=== PATIENT | female | born 1985 | race Caucasian/White ===

== ENCOUNTER 2022-09-07 12:17 | Emergency (ER) | payer OTHER, SELFPAY ==
[2022-09-07 12:20] VITALS: BP 149/101; PULSE 83; RESP 16; TEMP 36.8; O2SAT 100; BMI 31.0
--- NOTE | 2022-09-07 12:24 | ED.GENADULT ---
HPI - General Adult General Chief complaint: Skin/Abscess/Foreign Body Stated complaint: needle stick Time Seen by Provider: 09/07/22 12:45 Source: patient Mode of arrival: ambulatory Limitations: no limitations History of Present Illness HPI narrative: 37 yo otherwise healthy female presents to the ER for evaluation after she was accidentally stuck with a needle of an HIV positive patient at the [facility] just prior to arrival. She states another nurse administered an IM medication to the patient, there was bleeding afterward. She went to put the needle in the sharp box, did not cap and it and scraped the right hand of the patient accidentally. Patient had bleeding and she states there was blood on the needle that stuck her. She immediately washed out the wound and came to the ER, as [facility] was not available. complaint: needle stick of HIV+ patient Onset (ago): minute(s) Location: right and upper extremity Radiation: non-radiation Severity: mild Relieving factors: none Associated symptoms: denies other symptoms Treatments prior to arrival: none Related Data Previous Rx's Medication Instructions Recorded emtricitabine 200 mg-tenofovir 1 tab PO DAILY #7 tabs 09/07/22 disoproxil fumarate 300 mg tablet ondansetron 4 mg disintegrating 4 mg PO Q8H PRN nausea and 09/07/22 tablet vomiting #14 tabs raltegravir 400 mg tablet 400 mg PO BID #14 tabs 09/07/22 Allergies Allergy/AdvReac Type Severity Reaction Status Date / Time morphine [MORPHINE] Allergy Unknown FULL BODY Unverified 10/30/19 18:54 RASH Review of Systems Review of Systems: Yes all other systems are reviewed and are negative PMFSH Social History Social History Alcohol intake: never Smoked in Last 30 Days: Yes Use of substances other than those prescribed or required for medical reasons: No Advance Directives: No Advance Directives Information Provided: Yes Patient : No Physical Exam ED Vital Signs: Vital Signs - 24 hr 09/07/22 12:20 09/07/22 13:22 Temperature 98.2 F 98.1 F Pulse Rate 83 76 Respiratory Rate 16 16 Blood Pressure 149/101 H 125/82 Pulse Oximetry 100 100 Oxygen Delivery Method Room Air Room Air BMI result Body Mass Index 31.0 Appearance: Alert. Oriented X3. No acute distress. HEENT: normal inspection CVS: Normal heart rate and rhythm. Pulses normal. Respiratory: No respiratory distress. Skin: Skin warm and dry. Normal skin color. Normal skin turgor. No rashes. Extremities: dorsal aspect of the right hand with a 1.5cm superficial abrasion/scrape of the web space between thumb and 1st finger. 2 small puncture sites of the thumb as well. Neuro: Oriented X 3. No motor deficit. No sensory deficit. Course Course Course Narrative: This is an RME: Additional HPI, ROS, PE not included below will be deferred to primary provider. This is a 37-year-old female presenting to the emergency department for evaluation of needle stick with known HIV positive patient at [facility]. Patient reports that she was ?scraped by a dirty needle in her right hand after the needle was injected into an HIV positive patient. Patient reports that this patient's viral load is undetectable. Patient is up-to-date with tetanus Plan: Labs ordered. Will be seen by emergency room provider in the main emergency department. 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 her wounds are superficial. patient's exposure was from a HIV + patient whose viral load was negative. length discussion had with the patient and her . Dr. Vazquez also texted for recommendations - recommending PEP if patient is worried after discussing the risks and benefits the patient decided to proceed with PEP. kit provided as well as 7 day supply as patient is going on vacation starting this weekend she will f/u with [facility] for further management Differential Diagnosis Differential Diagnoses: The differential diagnosis associated with the presentation includes HIV exposure, low risk exposure, high risk exposure, HCV exposure Consult Healthcare Provider Management of the patient was discussed with: Contract Technical Writer dr. vazquez ID Lab Data MDM Lab Attestation statement: I reviewed the patient's lab results. 09/07/22 12:38 09/07/22 12:38 Labs: Lab Results 09/07/22 09/07/22 09/07/22 Range/Units 12:38 12:38 12:38 WBC 7.0 (4.8-10.8) X10*3/uL RBC 4.65 (4.20-5.50) X10*6/uL Hgb 13.5 (12.0-16.0) g/dl Hct 39.7 (37.0-47.0) % MCV 85.4 (80.0-98.0) fL MCH 29.0 (27.0-33.0) pg MCHC 34.0 (31.0-35.0) g/dl RDW 13.2 (11.0-16.0) % Plt Count 327 (160-400) X10*3/uL MPV 11.0 (9.4-12.3) fL Immature Gran % (Auto) 0.3 (0.0-0.4) % Neut % (Auto) 57.6 (45-73) % Lymph % (Auto) 34.1 (20-40) % Humphreys % (Auto) 6.5 (2-11) % Eos % (Auto) 0.9 (0-4) % Baso % (Auto) 0.6 (0-2) % Lymph # (Auto) 2.4 (1.2-4.9) X10*3/uL Humphreys # (Auto) 0.5 (0.1-1.2) X10*3/uL Eos # (Auto) 0.1 (0.0-0.4) X10*3/uL Baso # (Auto) 0.0 (0.0-0.2) X10*3/uL Abs Immat Gran (auto) 0.02 (0.00-0.03) X10*3/uL Absolute Neuts (auto) 4.1 (2.0-8.3) x10*3/uL Absolute Nucleated RBC 0.000 (0.0-0.012) X10*3/uL Nucleated RBC % (auto) 0.0 (0.0-0.2) /100WBC Sodium 138 (135-145) mmol/L Potassium 3.9 (3.3-5.1) mmol/L Chloride 107 (96-108) mmol/L Carbon Dioxide 21 L (22-29) mmol/L Anion Gap 14 (12-20) BUN 17 H (9-16) mg/dL Creatinine 0.74 (0.5-1.4) mg/dL Estim Creat Clear Calc 105.8 Estimated GFR > 60 Random Glucose 97 (60-115) mg/dL Calcium 9.9 (8.4-10.2) mg/dL Total Bilirubin 0.3 (0.0-1.0) mg/dL Direct Bilirubin 0.1 (0.0-0.5) mg/dL AST 14 (5-31) U/L ALT 11 (0-31) U/L Alkaline Phosphatase 58 (39-117) U/L Total Protein 7.7 (6.5-8.0) g/dL Albumin 4.2 (3.5-5.0) g/dL Amylase 104 H (28-100) U/L Lipase 28 (8-78) U/L Hep Bs Antigen Negative (Negative) Hep Bs Antibody REACTIVE (Nonreactive) Hep B Core Total Ab Nonreactive (Nonreactive) Hepatitis C Ab (EIA) Nonreactive (Nonreactive) HIV 1&2 Ab/P24 Ag 4thGn Nonreactive (Nonreactive) Independent Historian Clinical information obtained from an independent historian. History obtained from or confirmed by: Spouse Prescription Management I considered prescription management with: Antiviral Critical Care Time Critical Care Time Critical Care Time: No Discharge Plan Discharge Clinical Impression: HIV exposure Patient Disposition: Home, Self-Care Instructions: Needle Stick Injuries (ED), Postexposure Prophylaxis (ED) Additional Instructions: follow up with the [facility] for further management Prescriptions: New raltegravir 400 mg tablet 400 mg PO BID Qty: 14 0RF emtricitabine-tenofovir (TDF) 200-300 mg tablet 1 tab PO DAILY Qty: 7 0RF ondansetron 4 mg tablet,disintegrating 4 mg PO Q8H PRN (Reason: nausea and vomiting) Qty: 14 0RF Referrals: [facility] [Provider Group] (hiv exposure) Elisabeth Vazquez MD [Physician] - (hiv exposure) Kian Cardozo MD [Primary Care Provider] - Interventions: ED Discharge Assessment Last Done: 09/07/22 14:04 Discharge Date/Time: 09/07/22 14:10
[2022-09-07 12:57] LABS: MANUAL DIFF FLAG NO
[2022-09-07 13:22] VITALS: BP 125/82; PULSE 76; RESP 16; TEMP 36.7; O2SAT 100
[2022-09-07 13:28] LABS: Basophils Percent Auto 0.6 % (0-2); Eosinophils Absolute Auto 0.1 X10*3/uL (0.0-0.4); Eosinophils Percent Auto 0.9 % (0-4); Hematocrit 39.7 % (37.0-47.0); Hemoglobin 13.5 g/dl (12.0-16.0); Imm Gran Abs Auto 0.02 X10*3/uL (0.00-0.03); Imm Gran Pct Auto 0.3 % (0.0-0.4); Lymphocytes Absolute Auto 2.4 X10*3/uL (1.2-4.9); Lymphocytes Percent Auto 34.1 % (20-40); Mean Corpuscular Volume 85.4 fL (80.0-98.0); Monocytes Absolute Auto 0.5 X10*3/uL (0.1-1.2); Monocytes Percent Auto 6.5 % (2-11); Neutrophils Absolute Auto 4.1 x10*3/uL (2.0-8.3); Neutrophils Percent Auto 57.6 % (45-73); Platelet Count 327 X10*3/uL (160-400); Red Blood Count 4.65 X10*6/uL (4.20-5.50); Red Cell Distribution Width 13.2 % (11.0-16.0)
[2022-09-07 13:41] LABS: Alanine Aminotransferase 11 U/L (0-31); Albumin Level 4.2 g/dL (3.5-5.0); Alkaline Phosphatase 58 U/L (39-117); Amylase 104 U/L (28-100); Anion Gap 14 (12-20); Aspartate Amino Transferase 14 U/L (5-31); Bilirubin Direct 0.1 mg/dL (0.0-0.5); Blood Urea Nitrogen 17 mg/dL (9-16); Calcium 9.9 mg/dL (8.4-10.2); Carbon Dioxide 21 mmol/L (22-29); Chloride 107 mmol/L (96-108); Creatinine Clr Calc Pharmacy 105.8; Estimated Glomerular Filt Rate > 60; Glucose Random 97 mg/dL (60-115); Lipase 28 U/L (8-78); Potassium 3.9 mmol/L (3.3-5.1); Sodium 138 mmol/L (135-145); Total Protein 7.7 g/dL (6.5-8.0)
[2022-09-07 13:44] LABS: Bilirubin Total 0.3 mg/dL (0.0-1.0); HBc Num1 0.12 S/CO (0.00-0.79); HBsAGNum1 0.42 S/CO (0.00-0.99); HIV AB/AG Nonreactive (Nonreactive); HIV Num 1 0.07 S/CO (0.00-0.99); Hepatitis B Core Antibody Nonreactive (Nonreactive); Hepatitis B Surface Antigen Negative (Negative); ~HepC Num1 0.25 S/CO (0.00-0.79); ~Hepatitis B Surface Antibody REACTIVE (Nonreactive); ~Hepatitis C Antibody Nonreactive (Nonreactive)
[2022-09-07] MEDS: Post Exposure Medication Kit 1 KIT PO (13:51)
== END 2022-09-07 14:10 | disposition home or self-care (01) ==
PROVIDERS: Physician Assistant Medical; Emergency Provider Emergency Medicine Emergency Medical Services; PCP Pediatrics
DX: S61.431A Puncture wound without foreign body of right hand, initial encounter (principal); W26.9XXA Contact with unspecified sharp object(s), initial encounter; Y93.9 Activity, unspecified; Y92.9 Unspecified place or not applicable; Y99.0 Civilian activity done for income or pay; Z20.6 Contact with and (suspected) exposure to human immunodeficiency virus [HIV]; Z79.899 Other long term (current) drug therapy
CPT/HCPCS: 36415; 80048; 80076; 82150; 83690; 85025; 86704; 86706; 86803; 87340; 87389; 99283; 99284

== ENCOUNTER → 2022-09-08 09:18 | Outpatient (BNVA) | payer OTHER, SELFPAY | PROVIDERS: PCP Pediatrics; Visit Provider Physician Assistant | DX: Z77.21 Contact with and (suspected) exposure to potentially hazardous body fluids (principal) | CPT/HCPCS: 99204 ==

== ENCOUNTER → 2022-09-21 10:58 | Outpatient (BNVA) | payer OTHER, SELFPAY | PROVIDERS: PCP Pediatrics; Visit Provider Physician Assistant | DX: Z77.21 Contact with and (suspected) exposure to potentially hazardous body fluids (principal) | CPT/HCPCS: 99213 ==

== ENCOUNTER → 2022-10-05 08:23 | Outpatient (BNVA) | payer OTHER, SELFPAY | PROVIDERS: PCP Pediatrics; Visit Provider Physician Assistant Medical | DX: Z77.21 Contact with and (suspected) exposure to potentially hazardous body fluids (principal) | CPT/HCPCS: 99213 ==

== ENCOUNTER → 2022-12-25 14:20 | Outpatient (BNVA) | payer OTHER, SELFPAY | PROVIDERS: PCP Pediatrics | DX: Z77.21 Contact with and (suspected) exposure to potentially hazardous body fluids (principal) | CPT/HCPCS: 99211 ==

== ENCOUNTER → 2023-06-12 08:48 | Outpatient (BNVA) | payer OTHER, SELFPAY | PROVIDERS: PCP Pediatrics | DX: Z77.21 Contact with and (suspected) exposure to potentially hazardous body fluids (principal) | CPT/HCPCS: 99211 ==